=== PATIENT | male | born 1985 | race Caucasian/White ===

== ENCOUNTER 2021-08-10 17:12 | Emergency (ER) | payer SELFPAY ==
[~2021-08-10] VITALS: Ht 177.8 cm; Wt 127.3 kg
[2021-08-11 05:47] VITALS: BP 107/52; PULSE 86; TEMP 98.7
== END 2021-08-11 05:33 | disposition home or self-care (01) ==
LOC: COL.ER 17:12
DX: F10.129 Alcohol abuse with intoxication, unspecified (principal)
CPT/HCPCS: J2405